=== PATIENT | male | born 1980 | race Caucasian/White ===

== ENCOUNTER 2017-11-14 03:43 | Emergency (ER) | payer OTHER ==
[~2017-11-14] VITALS: Ht 177.8 cm; Wt 117.9 kg
[~2017-11-14 03:43] MED LIST: BENTYL 20 MG TA20 M1 PO; EDTA; HYDROCHLOROTHIA25 M2 PO; NORCO 7.5-3251 EACH PO; PRINIVIL20 MG PO; PROTONIX 20 MG20 MG PO; ULTRAM 50MG TAB50 MG PO
[2017-11-14] MEDS ORDERED: PERCOCET 5-3251 EACH PO (04:18)
[2017-11-14] MEDS ORDERED: FLEXERIL PO (04:18)
[2017-11-14 06:07] VITALS: BP 170/88
--- NOTE | 2017-11-14 18:10 | EKG ---
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 : 1980 Requested By: Kristopher Hough Order Number: [id number] MD: Marcelo Cordero Measurements Intervals [place] Rate: 81 P: 4 MO: 152 QRS: 40 QRSD: 94 T: 21 QT: 376 QTc: 437 Interpretive Statements Sinus rhythm Baseline wander in lead(s) V3 Compared to ECG 08/01/2017 18:06:44 Myocardial infarct finding no longer present Electronically Signed On 11-14-2017 18:10:04 CDT by Marcelo Cordero [email or web address] <ELECTRONICALLY SIGNED> By: Marcelo Cordero MD, [facility] 11/14/17 1810 0400 9 Marcelo Cordero MD, FACC /EPI
== END 2017-11-14 06:09 | disposition home or self-care (01) ==
LOC: M.ERS 03:43
DX: M54.6 Pain in thoracic spine (principal); I10 Essential (primary) hypertension; F17.210 Nicotine dependence, cigarettes, uncomplicated; Z88.6 Allergy status to analgesic agent; Z88.0 Allergy status to penicillin; Z21 Asymptomatic human immunodeficiency virus [HIV] infection status

== ENCOUNTER 2021-08-26 19:24 | Emergency (ER) | payer OTHER ==
[~2021-08-26] VITALS: Ht 177.8 cm; Wt 140.6 kg
[~2021-08-26 19:24] MED LIST changes: +FLEXERIL PO; +PERCOCET 5-3251 EACH PO
[2021-08-26] MEDS ORDERED: CELEXA 10 MG TA10 M1 PO (19:31)
[2021-08-26 21:05] LABS: ABSOLUTE BASOPHILS 0.1 thou/uL (0.0-0.2); ABSOLUTE EOSINOPHILS 0.1 thou/uL (0.0-0.7); ABSOLUTE LYMPHOCYTES 1.3 thou/uL (0.8-5.3); ABSOLUTE MONOCYTES 0.8 thou/uL (0.0-1.2); ABSOLUTE NEUTROPHILS 4.9 thou/uL (1.6-8.1); BASOPHILS 1.2 %; CALCIUM 9.7 mg/dL (8.5-10.1); EOSINOPHILS 1.9 %; HEMATOCRIT 39.9 % (42.0-52.0); HEMOGLOBIN 13.6 gm/dL (14.0-18.0); LYMPHOCYTES 17.7 %; MCH 29.3 pg (26.0-34.0); MCHC 34.1 g/dL (28.0-37.0); MCV 85.9 fL (80.0-100.0); MPV 7.9 fl. (7.2-11.1); NUCLEATED RBCS 0 /100WBC; PLATELET COUNT* 221 thou/uL (150-400); POLYS 68.2 %; RBC 4.65 mil/uL (4.50-6.00); RDW-CV 13.8 % (10.5-14.5); WBC 7.1 thou/uL (4.0-11.0)
[2021-08-26 21:10] LABS: ALBUMIN 3.5 g/dL (3.4-5.0); TOTAL BILIRUBIN 0.4 mg/dL (<0.1-1.0); TOTAL PROTEIN 7.8 g/dL (6.4-8.2)
[2021-08-26 22:59] LABS: URINE BILIRUBIN NEGATIVE (Negative); URINE BLOOD NEGATIVE (Negative); URINE CLARITY CLEAR; URINE COLOR YELLOW; URINE GLUCOSE-RANDOM NEGATIVE (Negative); URINE KETONES NEGATIVE (Negative); URINE LEUKOCYTES-REFLEX NEGATIVE (Negative); URINE NITRITE-REFLEX NEGATIVE (Negative); URINE PROTEIN NEGATIVE (Negative); URINE UROBILINOGEN 0.2 E.U./dl (0.2-1.0)
[2021-08-26] MEDS ORDERED: ZOFRAN ODT4 MG PO (23:05)
[2021-08-26] MEDS ORDERED: HYDROCODON-ACE1 EAC7 PO (23:05)
[2021-08-26] MEDS ORDERED: METRONIDAZOLE500 M4 PO (23:05)
[2021-08-26 23:15] VITALS: BP 142/70
--- NOTE | 2021-08-27 12:32 | EKG ---
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
== END 2021-08-26 23:16 | disposition home or self-care (01) ==
LOC: M.ERS 19:24
PROVIDERS: Physician Assistant
DX: K80.20 Calculus of gallbladder without cholecystitis without obstruction (principal); R10.11 Right upper quadrant pain; I10 Essential (primary) hypertension; F17.210 Nicotine dependence, cigarettes, uncomplicated; Z21 Asymptomatic human immunodeficiency virus [HIV] infection status; Z79.899 Other long term (current) drug therapy; Z88.6 Allergy status to analgesic agent; Z88.0 Allergy status to penicillin